=== PATIENT | female | born 1990 | race Caucasian/White ===

== ENCOUNTER 2020-11-06 09:08 | Outpatient (CLI) | payer OTHER | END 2020-11-06 09:09 | disposition home or self-care (01) | LOC: TBSIIMAG 09:08 | PROVIDERS: ATTEND Neurological Surgery | DX: M47.22 Other spondylosis with radiculopathy, cervical region (principal); R93.7 Abnormal findings on diagnostic imaging of other parts of musculoskeletal system | CPT/HCPCS: 72141 ==

== ENCOUNTER 2020-11-09 08:35 | Outpatient (CLI) | payer OTHER ==
[2020-11-09] MEDS ORDERED: Magnevist 469MG/ML 20 ML VIAL ONE ×2 (10:33)
== END 2020-11-09 08:36 | disposition home or self-care (01) ==
LOC: MRI 08:35
PROVIDERS: ATTEND Neurological Surgery
DX: R53.1 Weakness (principal); R20.9 Unspecified disturbances of skin sensation
CPT/HCPCS: 70553; 72142